=== PATIENT | male | born 1980 | race Caucasian/White ===

== ENCOUNTER 2020-02-07 17:19 | Emergency (ER) | payer MEDICAID ==
[~2020-02-07] VITALS: Ht 177.8 cm; Wt 81.5 kg
[2020-02-07 17:23] VITALS: BP 136/79
[2020-02-07] MEDS ORDERED: DEXAMETHASONE 4 MG TABLET ONE (17:45)
[2020-02-07] MEDS ORDERED: DEXAMETHASONE 4 MG TABLET PO ONE (18:00)
--- NOTE | 2020-02-07 18:03 | NUR ---
Patient given discharge instructions and they have confirmed that they understand the instructions. Patient ambulatory with steady gait.
== END 2020-02-07 18:03 | disposition home or self-care (01) ==
LOC: ED 17:30
DX: J02.0 Streptococcal pharyngitis (principal); R50.9 Fever, unspecified; F17.200 Nicotine dependence, unspecified, uncomplicated
CPT/HCPCS: 99283